=== PATIENT | male | born 1980 | race Caucasian/White ===

== ENCOUNTER 2023-12-13 08:43 | Emergency (ER) | payer BC, SELFPAY ==
--- NOTE | ~2023-12-13 | XR_ITS ---
EXAMINATION: XR chest 2V 12/13/2023 09:37 INDICATION: Chest pain PROCEDURE: 2 view chest COMPARISON: No prior studies for comparison. FINDINGS: The lungs are clear. The cardiomediastinal silhouette is within normal limits. There are no pleural effusions. There is no pneumothorax suspected. IMPRESSION: 1: NO ACUTE CARDIOPULMONARY DISEASE. Reviewed, dictated and finalized at location A.
--- NOTE | 2023-12-13 08:44 | ECG_ITS ---
SEE SCANNED COPY FOR CONFIRMED REPORT MTDD
[2023-12-13 08:51] VITALS: BP 134/91; PULSE 78; RESP 23; TEMP 36.1; O2SAT 99
[2023-12-13 09:01] LABS: Basophils Absolute Auto 0.1 K/mm3 (0.0-0.1); Basophils Percent Auto 0.9 % (0.2-1.2); Eosinophils Absolute Auto 0.1 K/mm3 (0-0.3); Eosinophils Percent Auto 1.2 % (0-4.4); Hemoglobin 16.7 g/dL (14.0-18.0); Immature Granulocyte Absolute 0.01 K/mm3 (0.00-0.031); Immature Granulocyte Percent A 0.2 % (0-0.5); Lymphocytes Absolute Auto 1.85 K/mm3 (0.9-3.2); Lymphocytes Percent Auto 32.7 % (18.3-44.2); Mean Corpuscular HGB Conc 33.4 g/dl (32-36); Mean Corpuscular Volume 89.8 fl (80-100); Mean Platelet Volume 9.6 fl (7.4-10.4); Monocytes Absolute Auto 0.5 K/mm3 (0.1-0.6); Monocytes Percent Auto 8.7 % (2.6-8.5); Neutrophils Absolute Auto 3.2 K/mm3 (1.3-6.7); Neutrophils Percent Auto 56.3 % (45.5-73.1); Platelet Count Result 214 k/mm3 (150-375); Red Blood Count 5.57 M/mm3 (4.6-6.20); Red Cell Distribution Width 12.5 % (11.5-14.5); White Blood Count 5.7 K/mm3 (4.5-10.0)
[2023-12-13] MEDS: ASPIRIN 81 MG CHEWABLE TABLET 324 MG PO (09:04)
[2023-12-13 09:05] VITALS: PULSE 70; O2SAT 97
[2023-12-13 09:11] LABS: Alanine Aminotransferase 45 U/L (6-50); Albumin Level 4.4 g/dL (3.5-5.1); Alkaline Phosphatase 78 U/L (38-126); Anion Gap 2 mmol/L (4-12); Aspartate Amino Transferase 34 U/L (17-59); Bilirubin,Total 0.7 mg/dL (0.2-1.3); Blood Urea Nitrogen 23 mg/dL (9-20); Calcium 9.5 mg/dL (8.4-10.2); Carbon Dioxide 32 mmol/L (22-30); Chloride 105 mmol/L (98-107); Estimated CRCL calculation 81 ml/min; Estimated Glomerular Filt Rate > 60; Glucose 115 mg/dL (65-110); Lipase 95 U/L (23-300); Potassium 4.2 mmol/L (3.4-5.0); Sodium 139 mmol/L (137-145)
[2023-12-13 09:11] LABS: INR 0.9
[2023-12-13 09:12] LABS: Partial Thromboplastin Time 27.3 Seconds (22.3-36.8)
[2023-12-13 09:22] LABS: Troponin I < 0.012 ng/mL (0.000-0.034)
[2023-12-13 09:53] VITALS: BP 116/86; PULSE 68; RESP 17; O2SAT 98
[2023-12-13 12:09] LABS: Troponin I < 0.012 ng/mL (0.000-0.034)
[2023-12-13 12:14] VITALS: BP 124/86; PULSE 60; RESP 17; O2SAT 99
--- NOTE | 2023-12-13 12:23 | ED.GENADULT ---
HPI - General Adult General Chief complaint: Chest Pain Stated complaint: Chest pain Time Seen by Provider: 12/13/23 08:57 History of Present Illness HPI narrative: Skyler Garcia is a 43 y/o male who presents today with reports of having episodes of left sided chest pain that lasts for about 15 minutes at a time about once a day the past 2-3 days. He dnies any current symptoms/ no SOB/ No PMHx and not on any medicatoins daily He has not been able to identify any contributing factors that makes his pain worse or better or anything a Related Data Allergies Allergy/AdvReac Type Severity Reaction Status Date / Time No Known Allergies Allergy Verified 12/13/23 08:54 Review of Systems Review of Systems: All systems reviewed & are unremarkable except as noted in HPI and below Exam Narrative: GENERAL: Well-appearing, well-nourished, and in no acute distress. HEAD: Normocephalic, atraumatic. EYES: PERRLA and EOMI. ENT: Nares clear, no rhinorrhea or epistaxis. Mucous membranes moist. Oropharynx without tonsillar hypertrophy exudate or other lesions. CHEST: Clear to auscultation. No respiratory distress. No wheezes rales or rhonchi HEART: Regular rate and rhythm. No murmur heard. Normal peripheral pulses. ABDOMEN: Soft, nontender, nondistended, normal active bowel sounds. EXTREMITIES: Normal range of motion. No edema. SKIN: Warm, dry, no rash. NEURO: No focal deficits. Alert and oriented x3. PSYCH: Normal mood and affect. Course Vital Signs Vital signs: Vital Signs Temperature 36.1 C L 12/13/23 08:51 Pulse Rate 78 12/13/23 08:51 Respiratory Rate 23 H 12/13/23 08:51 Blood Pressure 134/91 H 12/13/23 08:51 Pulse Oximetry 99 12/13/23 08:51 Oxygen Delivery Room Air 12/13/23 08:51 Temperature 36.1 C L 12/13/23 08:51 Pulse Rate 60 12/13/23 12:14 Respiratory Rate 17 12/13/23 12:14 Blood Pressure 124/86 12/13/23 12:14 Pulse Oximetry 99 12/13/23 12:14 Oxygen Delivery Room Air 12/13/23 09:05 Medical Decision Making [facility] Narrative Medical decision making narrative: 43 y/o male who presents today with reports of having 2-3 days of chest pain that comes on for about 15 minutes at random. He denies any SOB No recent fevers/ no cough/ he currently denies any chest pain Plan to check full cardiac work up here and give ASA CBC- within normal CMP- unremarkable Trop 1 - Negative TRop 2- Negative EKG NSR chest xr - negative for acute findings. Lipase - negative HeartScore of 1 which is low risk, pt has not had any chest pain while here Discussed results with pt and encouraged that he establish with a PCP for close follow up with consideration of out pt tests Medical Records Medical records reviewed: Yes I reviewed the external patient's medical records. Vital Signs Vital Signs: Vital Signs Temperature 36.1 C L 12/13/23 08:51 Pulse Rate 78 12/13/23 08:51 Respiratory Rate 23 H 12/13/23 08:51 Blood Pressure 134/91 H 12/13/23 08:51 Pulse Oximetry 99 12/13/23 08:51 Oxygen Delivery Room Air 12/13/23 08:51 Temperature 36.1 C L 12/13/23 08:51 Pulse Rate 60 12/13/23 12:14 Respiratory Rate 17 12/13/23 12:14 Blood Pressure 124/86 12/13/23 12:14 Pulse Oximetry 99 12/13/23 12:14 Oxygen Delivery Room Air 12/13/23 09:05 Vitals reviewed by me. Lab Data Lab results reviewed: Yes I reviewed the patient's lab results. 12/13/23 08:57 12/13/23 08:57 Labs: Lab Results 12/13/23 12/13/23 12/13/23 Range/Units 08:56 08:57 11:36 WBC 5.7 (4.5-10.0) K/mm3 RBC 5.57 (4.6-6.20) M/mm3 Hgb 16.7 (14.0-18.0) g/dL Hct 50.0 (42.0-52.0) % MCV 89.8 (80-100) fl MCH 30.0 (26-34) pg MCHC 33.4 (32-36) g/dl RDW 12.5 (11.5-14.5) % Plt Count 214 (150-375) k/mm3 MPV 9.6 (7.4-10.4) fl Immature Gran % (Auto) 0.2 (0-0.5) % Neut % (Auto) 56.3 (45.5-73.1) % Lymph %
[2023-12-13 12:55] VITALS: BP 123/77; PULSE 62; RESP 26; O2SAT 100
== END 2023-12-13 12:56 | disposition home or self-care (01) ==
PROVIDERS: Preventive Medicine Aerospace Medicine; Emergency Provider Nurse Practitioner Family
DX: R07.89 Other chest pain (principal)
CPT/HCPCS: 36415; 71046; 80053; 83690; 84484; 85025; 85610; 85730; 93005; 99284; A9270